=== PATIENT | male | born 1990 | race Caucasian/White ===

== ENCOUNTER 2020-06-17 08:28 | Inpatient (IN) | payer OTHER ==
[~2020-06-17] VITALS: Ht 193 cm; Wt 99.8 kg
[2020-06-17 08:35] VITALS: BP 129/71
[2020-06-17 09:01] LABS: BASO % 0.4 % (0.0-1.0); EOS # 0.3 10*3/uL (0.0-0.4); EOS % 3.6 % (1.0-4.0); HEMATOCRIT 41.6 % (42.0-52.0); LYMPH # 3.2 10*3/uL (1.3-4.4); LYMPH % 43.6 % (27.0-41.0); MEAN CELL VOLUME 90.2 fl (80.0-94.0); MEAN CORPUSCULAR HGB 30.8 pg (27.0-31.0); MEAN CORPUSCULAR HGB CONC 34.1 g/dl (33.0-37.0); MEAN PLATELET VOLUME 8.5 fl (9.6-12.3); MONO # 0.8 10*3/uL (0.1-1.0); MONO % 10.3 % (3.0-9.0); NEUT % 41.8 % (47.0-73.0); PLATELET COUNT AUTOMATED 207 10*3/uL (130-400); RED BLOOD COUNT 4.61 10*6/uL (4.50-5.90); WHITE BLOOD COUNT 7.3 10*3/uL (4.8-10.8)
[2020-06-17 09:16] LABS: ALBUMIN 3.6 gm/dl (3.1-4.5); ALKALINE PHOSPHATASE 70 U/L (45-117); BUN 18 mg/dl (7-24); CHLORIDE 106 mmol/L (98-107); CREATININE 0.76 mg/dL (0.70-1.30); ETHYL ALCOHOL < 3.0 mg/dl (<3); POTASSIUM 4.2 mmol/L (3.5-5.1); SGOT/AST 53 IU/L (3-35); SGPT/ALT 85 U/L (12-78); SODIUM 140 mmol/L (136-145); TOTAL PROTEIN 7.7 gm/dL (6.4-8.2)
[2020-06-17 11:54] LABS: URINE AMPHETAMINES < 1000 (1000ng/ml); URINE BARBITURATES < 200 (200ng/ml); URINE BENZODIAZEPINES > 200 (200ng/ml); URINE CANNABINOIDS (THC) < 50 (50ng/ml); URINE COCAINE < 300 (300ng/ml); URINE METHADONE > 300 (300ng/ml); URINE OPIATES < 300 (300ng/ml)
[2020-06-17 11:55] LABS: URINE PHENCYCLIDINE < 25 (25ng/ml)
--- NOTE | 2020-06-17 14:45 | NUR ---
PT STATES WALKING DOWN THE [place] "I NEED TO LEAVE I CAN'T STAY." RN TOOK IV OUT AND PT LEFT.
--- NOTE | 2020-06-17 15:30 | NUR ---
NOTIFIED RESIDENT OF PT LEAVING WITHOUT COMPLETING TREATMENT
--- NOTE | 2020-06-17 16:08 | NUR ---
[facility] STAFF IN TO SEE PATIENT. PATIENT REPORTS THAT HE WANTED TO LEAVE. [place] STAFF ENCOURAGE HIM TO STAY. [facility] STAFF PROVIDED PATIENT WITH OTHER REFERRALS. MARIANA SOTO B.A. QA [employer]
== END 2020-06-17 17:03 | disposition left against medical advice (07) | DRG 770 ==
LOC: ED 08:28 → EDHOLD 08:51
PROVIDERS: Emergency Medicine; ADMIT Emergency Medicine; ATTEND Emergency Medicine
DX: F11.13 Opioid abuse with withdrawal (principal); F13.10 Sedative, hypnotic or anxiolytic abuse, uncomplicated; F10.230 Alcohol dependence with withdrawal, uncomplicated; Z53.29 Procedure and treatment not carried out because of patient's decision for other reasons; F17.210 Nicotine dependence, cigarettes, uncomplicated; R74.01 Elevation of levels of liver transaminase levels; Z71.6 Tobacco abuse counseling; E83.51 Hypocalcemia